=== PATIENT | female | born 1995 | race Caucasian/White ===

== ENCOUNTER 2021-07-03 17:59 | Emergency (ER) | payer BC ==
[~2021-07-03] VITALS: Ht 160 cm; Wt 52.2 kg
--- NOTE | 2021-07-03 23:50 | NUR ---
Called patient x 3, no answer. Patient left without being seen. No further tretmment provided. ER MD aware
== END 2021-07-03 23:50 | disposition left against medical advice (07) ==
LOC: SED 17:59
DX: R10.9 Unspecified abdominal pain (principal); Z53.21 Procedure and treatment not carried out due to patient leaving prior to being seen by health care provider